=== PATIENT | female | born 1960 ===

== ENCOUNTER 2023-04-20 06:13 | Day surgery (SDC) | payer OTHER ==
[~2023-04-20 06:13] MED LIST: ADULT LOW DOSE81 M1 PO; CARVEDILOL25 M1 PO; DIOVAN320 MG PO; GABAPENTIN300 M2 PO; LYRICA200 MG PO; NIFEDIPINE ER30 M1 PO; PROTONIX40 MG PO; SERT PO; TRAZOD PO; TRIGLIDE PO
[2023-04-20] MEDS ORDERED: PERCOCET 5-3251 EACH PO (10:57)
== END 2023-04-20 13:40 | disposition home or self-care (01) ==
LOC: CIR.AMB 06:13
PROVIDERS: ATTEND Surgery
DX: C73 Malignant neoplasm of thyroid gland (principal); Z20.822 Contact with and (suspected) exposure to COVID-19; I10 Essential (primary) hypertension; E03.9 Hypothyroidism, unspecified